=== PATIENT | male | born 1960 | race Caucasian/White ===

== ENCOUNTER 2017-10-18 01:56 | Inpatient (IN) | payer MEDICARE, SELFPAY ==
[~2017-10-18] VITALS: Ht 175.3 cm; Wt 116.7 kg
[~2017-10-18 01:56] MED LIST: ALBU90OI61 INH; LOSHYD; Lisinopril2.5 MG
[2017-10-18] MEDS ORDERED: ASPI81CH PO (02:15)
[2017-10-18] MEDS ORDERED: Prilosec Otc20 MG PO (02:16)
[2017-10-18 02:39] LABS: PCO2 Arterial 35.1 mmHg (35-45); PO2 Arterial 78.1 mmHg (80-100); pH Blood Arterial 7.47 (7.35-7.45)
[2017-10-18 02:53] LABS: BASOPHILS ABSOLUTE AUTO 0.04 K/mm3 (0.00-0.23); BASOPHILS PERCENT AUTO 0 % (0-2); EOSINOPHILS ABSOLUTE AUTO 0.12 K/mm3 (0.00-0.68); EOSINOPHILS PERCENT AUTO 1 % (0-6); Hematocrit 38.9 % (37.0-53.0); Hemoglobin 13.6 g/dL (13.5-17.5); IMMATURE GRAN ABSOLUTE AUTO 0.06 K/mm3 (0.00-0.10); IMMATURE GRAN PERCENT AUTO 0 % (0-1); LYMPHOCYTES ABSOLUTE AUTO 1.08 K/mm3 (0.84-5.20); LYMPHOCYTES PERCENT AUTO 7 % (21-46); MONOCYTES ABSOLUTE AUTO 0.86 K/mm3 (0.16-1.47); MONOCYTES PERCENT AUTO 5 % (4-13); Mean Corpuscular HGB 30.2 pg (26.0-34.0); Mean Corpuscular Volume 86 fL (80-100); NEUTROPHILS ABSOLUTE AUTO 14.14 K/mm3 (1.96-9.15); NEUTROPHILS PERCENT AUTO 87 % (41-73); Platelet Count 275 K/mm3 (150-400); RDW Coefficient Variation 11.8 % (11.7-14.2); RDW Standard Deviation 37.4 fL (35.1-46.3)
[2017-10-18 03:17] LABS: Alanine Aminotransfer (ALT/SGP 25 U/L (12-78); Albumin, Blood 3.7 g/dL (3.4-5.0); Albumin/Globulin Ratio 0.9 (0.8-1.8); Alk Phos 51 U/L (50-136); Anion Gap 9 mmol/L (6-16); Aspartate Aminotrans (AST/SGOT 13 U/L (12-37); Bilirubin, Total 0.4 mg/dL (0.1-1.0); Blood Urea Nitrogen 17 mg/dL (8-24); Bun/Creatinine Ratio 15.3 (12.0-20.0); CO2, Blood 26 mmol/L (21-32); Calcium, Blood 8.9 mg/dL (8.5-10.1); Chloride, Blood 99 mmol/L (98-108); Creatinine, Blood 1.11 mg/dL (0.60-1.20); Globulin, Blood 3.9 g/dL (2.2-4.0); Glomerular Filtration Rate >60 (60-); Glucose, Blood 159 mg/dL (70-99); Magnesium, Blood 1.7 mg/dL (1.6-2.4); Sodium, Blood 134 mmol/L (136-145); Total Protein, Blood 7.6 g/dL (6.4-8.2); Troponin I <0.015 ng/mL (0.000-0.040)
[2017-10-18 05:54] LABS: Influenza A Negative (NEGATIVE); Influenza B Negative (NEGATIVE)
[2017-10-18] MEDS ORDERED: AMLO10 PO (06:50)
[2017-10-18] MEDS ORDERED: LISI20 PO (06:50)
[2017-10-18] MEDS ORDERED: Hair, Skin & N1 EACH PO (06:51)
[2017-10-19 05:07] LABS: Hematocrit 37.1 % (37.0-53.0); Hemoglobin 12.5 g/dL (13.5-17.5); Mean Corpuscular HGB 30.3 pg (26.0-34.0); Mean Corpuscular HGB Conc 33.7 g/dL (31.5-36.5); Mean Platelet Volume 8.9 fL (9.1-12.4); Platelet Count 256 K/mm3 (150-400); RDW Coefficient Variation 12.4 % (11.7-14.2); Red Blood Cell Count 4.13 M/mm3 (4.30-5.90); White Blood Cell Count 19.54 K/mm3 (4.00-11.30)
[2017-10-19 05:08] LABS: Mean Corpuscular Volume 90 fL (80-100)
[2017-10-19 05:30] LABS: Anion Gap 8 mmol/L (6-16); Blood Urea Nitrogen 16 mg/dL (8-24); Bun/Creatinine Ratio 17.8 (12.0-20.0); CO2, Blood 23 mmol/L (21-32); Calcium, Blood 8.7 mg/dL (8.5-10.1); Chloride, Blood 105 mmol/L (98-108); Glomerular Filtration Rate >60 (60-); Glucose, Blood 158 mg/dL (70-99); Potassium, Blood 4.3 mmol/L (3.5-5.5); Sodium, Blood 136 mmol/L (136-145)
[2017-10-20 05:43] LABS: Hematocrit 36.2 % (37.0-53.0); Hemoglobin 12.1 g/dL (13.5-17.5); Mean Corpuscular HGB Conc 33.4 g/dL (31.5-36.5); Mean Corpuscular Volume 90 fL (80-100); Mean Platelet Volume 9.7 fL (9.1-12.4); Platelet Count 283 K/mm3 (150-400); RDW Coefficient Variation 12.5 % (11.7-14.2); RDW Standard Deviation 41.3 fL (35.1-46.3); Red Blood Cell Count 4.04 M/mm3 (4.30-5.90); White Blood Cell Count 19.35 K/mm3 (4.00-11.30)
[2017-10-20 06:09] LABS: Anion Gap 8 mmol/L (6-16); Blood Urea Nitrogen 23 mg/dL (8-24); Bun/Creatinine Ratio 24.6 (12.0-20.0); CO2, Blood 25 mmol/L (21-32); Calcium, Blood 8.9 mg/dL (8.5-10.1); Chloride, Blood 103 mmol/L (98-108); Creatinine, Blood 0.94 mg/dL (0.60-1.20); Glomerular Filtration Rate >60 (60-); Glucose, Blood 182 mg/dL (70-99); Sodium, Blood 136 mmol/L (136-145)
[2017-10-21 05:30] LABS: Hematocrit 35.8 % (37.0-53.0); Hemoglobin 12.1 g/dL (13.5-17.5); Mean Corpuscular HGB 30.3 pg (26.0-34.0); Mean Corpuscular HGB Conc 33.8 g/dL (31.5-36.5); Mean Corpuscular Volume 90 fL (80-100); Mean Platelet Volume 9.5 fL (9.1-12.4); Platelet Count 304 K/mm3 (150-400); RDW Coefficient Variation 12.5 % (11.7-14.2); White Blood Cell Count 19.58 K/mm3 (4.00-11.30)
[2017-10-21] MEDS ORDERED: AZIT500 PO (12:01)
[2017-10-21] MEDS ORDERED: CEFU500T30 PO (12:01)
[2017-10-21] MEDS ORDERED: HYDCHL25 PO (12:02)
[2017-10-21] MEDS ORDERED: Prednisone20 MG PO (12:03)
== END 2017-10-21 12:28 | disposition home or self-care (01) | DRG 871 ==
LOC: ER 01:56 → MEDS 05:25 → ENPENDDIS 10-21 10:43 → MEDS 10-21 12:28
PROVIDERS: Emergency Medicine; Internal Medicine
DX: A41.9 Sepsis, unspecified organism (principal); J18.9 Pneumonia, unspecified organism; J96.01 Acute respiratory failure with hypoxia; J45.901 Unspecified asthma with (acute) exacerbation; E87.70 Fluid overload, unspecified; R65.20 Severe sepsis without septic shock; I10 Essential (primary) hypertension; E66.9 Obesity, unspecified; Z68.36 Body mass index [BMI] 36.0-36.9, adult; Z88.8 Allergy status to other drugs, medicaments and biological substances; Z79.82 Long term (current) use of aspirin; Z79.899 Other long term (current) drug therapy
CPT/HCPCS: 36415; 36600; 71046; 80048; 80053; 82803; 83605; 83735; 83880; 84484; 85025; 85027; 87040; 87070; 87081; 87205; 87804; 93005; 93010; 94640; 94644; 94667; 94760; 96365; 96366; 96367; 96375; 99285; J0456; J0696; J1650; J1885; J1940; J2930; J3475; J7030; J7050

== ENCOUNTER 2022-07-21 19:54 | Emergency (ER) | payer MEDICARE ==
[~2022-07-21] VITALS: Ht 172.7 cm; Wt 108.9 kg
[~2022-07-21 19:54] MED LIST changes: +AMLO10 PO; +ASPI81CH PO; +AZIT500 PO; +CEFU500T30 PO; +HYDCHL25 PO; +Hair, Skin & N1 EACH PO; +LISI20 PO; +Prednisone20 MG PO; +Prilosec Otc20 MG PO
[2022-07-21 20:57] LABS: BASOPHILS ABSOLUTE AUTO 0.01 K/mm3 (0.00-0.23); BASOPHILS PERCENT AUTO 0 % (0-2); EOSINOPHILS PERCENT AUTO 0 % (0-6); Hematocrit 41.2 % (37.0-53.0); IMMATURE GRAN ABSOLUTE AUTO 0.03 K/mm3 (0.00-0.10); IMMATURE GRAN PERCENT AUTO 0 % (0-1); LYMPHOCYTES ABSOLUTE AUTO 0.86 K/mm3 (0.84-5.20); LYMPHOCYTES PERCENT AUTO 9 % (21-46); MONOCYTES ABSOLUTE AUTO 0.53 K/mm3 (0.16-1.47); MONOCYTES PERCENT AUTO 6 % (4-13); Mean Corpuscular HGB 30.4 pg (26.0-34.0); Mean Corpuscular HGB Conc 36.4 g/dL (31.5-36.5); Mean Corpuscular Volume 83 fL (80-100); Mean Platelet Volume 9.1 fL (9.1-12.4); NEUTROPHILS ABSOLUTE AUTO 8.04 K/mm3 (1.96-9.15); NEUTROPHILS PERCENT AUTO 85 % (41-73); Platelet Count 248 K/mm3 (150-400); RDW Coefficient Variation 11.8 % (11.7-14.2); RDW Standard Deviation 35.8 fL (35.1-46.3); Red Blood Cell Count 4.94 M/mm3 (4.30-5.90); White Blood Cell Count 9.47 K/mm3 (4.00-11.30)
[2022-07-21 21:16] LABS: Albumin, Blood 3.8 g/dL (3.4-5.0); Bilirubin, Total 0.4 mg/dL (0.1-1.0); Bun/Creatinine Ratio 18.1 (12.0-20.0); Calcium, Blood 8.8 mg/dL (8.5-10.1); Creatinine, Blood 1.05 mg/dL (0.60-1.20); Globulin, Blood 3.9 g/dL (2.2-4.0); Potassium, Blood 3.4 mmol/L (3.5-5.5); Total Protein, Blood 7.7 g/dL (6.4-8.2)
== END 2022-07-22 00:07 | disposition home or self-care (01) ==
LOC: ER 19:54
PROVIDERS: Physician Assistant
DX: J10.1 Influenza due to other identified influenza virus with other respiratory manifestations (principal); J45.901 Unspecified asthma with (acute) exacerbation; I10 Essential (primary) hypertension; Z88.8 Allergy status to other drugs, medicaments and biological substances; Z79.82 Long term (current) use of aspirin; Z79.899 Other long term (current) drug therapy; Z79.52 Long term (current) use of systemic steroids
CPT/HCPCS: 71046; 80053; 84484; 85025; 94644; 94664; A9270

== ENCOUNTER 2022-11-05 13:57 | Emergency (ER) | payer OTHER, MEDICARE ==
[~2022-11-05] VITALS: Ht 172.7 cm; Wt 86.2 kg
== END 2022-11-05 17:04 | disposition home or self-care (01) ==
LOC: ER 13:57
DX: S09.90XA Unspecified injury of head, initial encounter (principal); S16.1XXA Strain of muscle, fascia and tendon at neck level, initial encounter; Z79.899 Other long term (current) drug therapy; I10 Essential (primary) hypertension; V89.2XXA Person injured in unspecified motor-vehicle accident, traffic, initial encounter; Z79.52 Long term (current) use of systemic steroids
CPT/HCPCS: 70450; 72125; A9270

== ENCOUNTER 2023-06-26 08:26 | Inpatient (IN) | payer MEDICARE, OTHER ==
[~2023-06-26] VITALS: Ht 175.3 cm; Wt 111.1 kg
[2023-06-26 09:45] LABS: BASOPHILS ABSOLUTE AUTO 0.05 K/mm3 (0.00-0.23); BASOPHILS PERCENT AUTO 0 % (0-2); EOSINOPHILS ABSOLUTE AUTO 0.01 K/mm3 (0.00-0.68); EOSINOPHILS PERCENT AUTO 0 % (0-6); Hematocrit 39.5 % (37.0-53.0); Hemoglobin 14.2 g/dL (13.5-17.5); IMMATURE GRAN ABSOLUTE AUTO 0.18 K/mm3 (0.00-0.10); IMMATURE GRAN PERCENT AUTO 1 % (0-1); LYMPHOCYTES ABSOLUTE AUTO 0.47 K/mm3 (0.84-5.20); LYMPHOCYTES PERCENT AUTO 2 % (21-46); MONOCYTES ABSOLUTE AUTO 0.68 K/mm3 (0.16-1.47); MONOCYTES PERCENT AUTO 3 % (4-13); Mean Corpuscular HGB 32.2 pg (26.0-34.0); Mean Corpuscular HGB Conc 35.9 g/dL (31.5-36.5); Mean Corpuscular Volume 90 fL (80-100); Mean Platelet Volume 8.9 fL (9.1-12.4); NEUTROPHILS ABSOLUTE AUTO 18.84 K/mm3 (1.96-9.15); NEUTROPHILS PERCENT AUTO 93 % (41-73); Platelet Count 216 K/mm3 (150-400); RDW Coefficient Variation 12.6 % (11.7-14.2); RDW Standard Deviation 41.4 fL (35.1-46.3); Red Blood Cell Count 4.41 M/mm3 (4.30-5.90); White Blood Cell Count 20.23 K/mm3 (4.00-11.30)
[2023-06-26 10:06] LABS: Albumin, Blood 3.5 g/dL (3.4-5.0); Albumin/Globulin Ratio 0.9 (0.8-1.8); Bilirubin, Total 0.6 mg/dL (0.1-1.0); Bun/Creatinine Ratio 21.2 (12.0-20.0); Calcium, Blood 9.2 mg/dL (8.5-10.1); Creatinine, Blood 1.04 mg/dL (0.60-1.20); Globulin, Blood 3.8 g/dL (2.2-4.0); Magnesium, Blood 1.8 mg/dL (1.6-2.4); Potassium, Blood 3.9 mmol/L (3.5-5.5); Total Protein, Blood 7.3 g/dL (6.4-8.2)
[2023-06-26 10:38] LABS: BASOPHILS PERCENT MAN 0 % (0-2); EOSINOPHILS PERCENT MAN 0 % (0-6); LYMPHOCYTES PERCENT MAN 2 % (21-46); MONOCYTES PERCENT MAN 4 % (4-13); NEUTROPHILS ABSOLUTE MAN 19.01 K/mm3 (1.96-9.15); SEG NEUTROPHILS PERCENT MAN 94 % (41-73); TOTAL CELLS COUNTED 100
[2023-06-26 10:58] LABS: Source, Urine Clean Catch
[2023-06-26 11:02] LABS: Appearance, Urine Clear (Clear); Bilirubin, Urine Neg (Neg); Blood, Urine 1+ (Neg); Color, Urine Yellow (P-Yellow); Glucose Qualitative, Urine 2+ (Neg); Ketones, Urine 1+ (Neg); Leukocyte Esterase, Urine Neg (Neg); Nitrite, Urine Neg (Neg); Protein, Urine 2+ (Neg); Urobilinogen, Urine NORM (Normal)
[2023-06-26 11:10] LABS: Bacteria Rare /hpf; Squamous Epithelial Cells Rare /hpf (Few)
[2023-06-26 11:11] LABS: Mucus Light (0-Heavy)
[2023-06-26 20:09] VITALS: BP 113/75
[2023-06-27 04:10] VITALS: BP 111/64
--- NOTE | 2023-06-27 04:41 | NUR ---
SHIFT SUMMARY/ADMISSION NOTE PATIENT ARRIVED TO UNIT FROM ED AT 1940. ORIENTED TO UNIT, ROOM AND CALL LIGHT FUNCTIONS. SPOUSE AT BEDSIDE, SUPPORTIVE. PATIENT IS A/Ox4, STATES HE WAS AT SON's SCHOOL, SUDDENLY FELT NAUSEATED, OPENED CAR DOOR, THREW UP THEN PASSED OUT, FELL OUT OF CAR AND HIT HEAD ON PAVEMENT. SUSTAINED LACERATION TO RIGHT FOREHEAD/EYEBROW, PERIORBITAL BRUISING AND SWELLING, SUTURED IN ED, REYES. IS CONTINENT OF B&B, RECENTLY HAS ACCIDENTS AT TIMES DUE TO URGENCY/PAINFUL URINATION, HX OF PROSTATECTOMY LAST JULY. PATIENT HAS HAD 2 INCONTINENT VOIDS, DECLINED CONDOM CATHETER, AGREED TO WEAR PULL-UPS. MEDICATED PER EMAR FOR FACIAL PAIN AND CHRONIC BACK PAIN, EXACERBATED DUE TO RECENT FALL. TEMP HAS BEEN ELEVATED, MEDICATED WITH PRN TYLENOL WITH GOOD RESULTS. NO ACUTE CHANGES NOTED OVERNIGHT. BED LOCKED AND IN LOWEST POSITION, CALL LIGHT WITHIN REACH.
[2023-06-27 05:23] LABS: BASOPHILS ABSOLUTE AUTO 0.02 K/mm3 (0.00-0.23); BASOPHILS PERCENT AUTO 0 % (0-2); EOSINOPHILS PERCENT AUTO 0 % (0-6); Hematocrit 36.9 % (37.0-53.0); Hemoglobin 12.9 g/dL (13.5-17.5); IMMATURE GRAN ABSOLUTE AUTO 0.13 K/mm3 (0.00-0.10); IMMATURE GRAN PERCENT AUTO 1 % (0-1); LYMPHOCYTES ABSOLUTE AUTO 0.55 K/mm3 (0.84-5.20); LYMPHOCYTES PERCENT AUTO 4 % (21-46); MONOCYTES ABSOLUTE AUTO 0.66 K/mm3 (0.16-1.47); MONOCYTES PERCENT AUTO 5 % (4-13); Mean Corpuscular HGB 32.1 pg (26.0-34.0); Mean Corpuscular Volume 92 fL (80-100); Mean Platelet Volume 9.2 fL (9.1-12.4); NEUTROPHILS ABSOLUTE AUTO 12.65 K/mm3 (1.96-9.15); NEUTROPHILS PERCENT AUTO 90 % (41-73); Platelet Count 180 K/mm3 (150-400); RDW Coefficient Variation 12.7 % (11.7-14.2); Red Blood Cell Count 4.02 M/mm3 (4.30-5.90); White Blood Cell Count 14.01 K/mm3 (4.00-11.30)
[2023-06-27 06:12] LABS: Bun/Creatinine Ratio 18.1 (12.0-20.0); Calcium, Blood 8.3 mg/dL (8.5-10.1); Creatinine, Blood 1.38 mg/dL (0.60-1.20); Potassium, Blood 3.7 mmol/L (3.5-5.5)
[2023-06-27 07:28] VITALS: BP 144/85
[2023-06-27 08:24] LABS: International Normalized Ratio 1.16; Prothrombin Time Results 12.1 Sec (9.7-11.5)
--- NOTE | 2023-06-27 13:57 | NUR ---
CT IMAGING HERE TO TAKE PT TO XRAY FOR PROCEDURE VIA W/C. CONTINUE POC.
[2023-06-27 15:34] VITALS: BP 148/75
--- NOTE | 2023-06-27 17:46 | NUR ---
note PT ALERT AND ORIENTED. UP AD MIAH AT BEDSIDE. VOIDING PER URINAL. VSS. PT EXPRESSED LACK OF PAIN WITH VOIDING AFTER ABCESS DRAINING. IVF INFUSING. URINE STILL VERY DARK, NO ODOR NOTED. AT BEDSIDE. MEDICATED WITH TYLENOL FOR ELEVATED TEMP. PT STATES HE IS STARTING TO FEEL BETTER. RIGHT EYE SWELLING STABLE. YELLOWISH DISCHARGE HAS DECREASED. PT USES A WET, WARM CLOTH TO GENTLE WASH HIS EYE. HE STATES HE HAS A HEADACHE. NO LIGHT SENSATIVITY. CRICKET. ATE JELO AND DRANK TEA WHEN HE RETURNED FROM CT. NO NAUSEA. CONTINUE POC.
[2023-06-27 19:32] VITALS: BP 107/64
--- NOTE | 2023-06-28 03:59 | NUR ---
SHIFT SUMMARY PT A&Ox4, CALM AND COOPERATIVE WITH CARE PROVIDED. PT UP AD MIAH AT BEDSIDE USING URINAL. NS INFUISING AT 200 ML/HR. PT COMPLAINT OF A HEADACHE--MEDICATED PER EMAR. PT GIVEN CLEAN WET WASHCLOTH TO WIPE AWAY EYE DRAINAGE WHICH IS VERY MINIMAL. AT BEDSIDE AT START OF SHIFT. BED KEPT IN LOWEST POSITION WITH CALL LIGHT WITHIN REACH. WILL CONTINUE TO MONITOR UNTIL END OF SHIFT.
[2023-06-28 05:06] LABS: BASOPHILS ABSOLUTE AUTO 0.02 K/mm3 (0.00-0.23); BASOPHILS PERCENT AUTO 0 % (0-2); EOSINOPHILS ABSOLUTE AUTO 0.01 K/mm3 (0.00-0.68); EOSINOPHILS PERCENT AUTO 0 % (0-6); Hematocrit 33.2 % (37.0-53.0); Hemoglobin 11.4 g/dL (13.5-17.5); IMMATURE GRAN ABSOLUTE AUTO 0.07 K/mm3 (0.00-0.10); IMMATURE GRAN PERCENT AUTO 1 % (0-1); LYMPHOCYTES ABSOLUTE AUTO 0.53 K/mm3 (0.84-5.20); LYMPHOCYTES PERCENT AUTO 5 % (21-46); MONOCYTES ABSOLUTE AUTO 0.86 K/mm3 (0.16-1.47); MONOCYTES PERCENT AUTO 8 % (4-13); Mean Corpuscular HGB 31.9 pg (26.0-34.0); Mean Corpuscular HGB Conc 34.3 g/dL (31.5-36.5); Mean Corpuscular Volume 93 fL (80-100); NEUTROPHILS ABSOLUTE AUTO 8.77 K/mm3 (1.96-9.15); NEUTROPHILS PERCENT AUTO 85 % (41-73); Platelet Count 161 K/mm3 (150-400); RDW Standard Deviation 44.7 fL (35.1-46.3); Red Blood Cell Count 3.57 M/mm3 (4.30-5.90); White Blood Cell Count 10.26 K/mm3 (4.00-11.30)
[2023-06-28 05:44] LABS: Creatinine, Blood 1.2 mg/dL (0.60-1.20); Magnesium, Blood 2.2 mg/dL (1.6-2.4); Potassium, Blood 3.7 mmol/L (3.5-5.5)
[2023-06-28 06:06] VITALS: BP 109/75
[2023-06-28 07:27] VITALS: BP 128/84
[2023-06-28 16:31] VITALS: BP 147/79
[2023-06-28 19:39] VITALS: BP 143/87
--- NOTE | 2023-06-28 20:07 | NUR ---
SHIFT SUMMARY PATIENT WITH HEADACHE THROUGHOUT SHIFT PAIN 2-4/10 MEDICATED PER EMAR WITH SOME RELIEF. NO OTHER COMPLAINTS BY PATIENT. BED IN LOW POSITION, CALL LIGHT IN REACH. PATIENT CALLS APPROPRIATELY.
[2023-06-29 03:54] VITALS: BP 132/85
--- NOTE | 2023-06-29 05:00 | NUR ---
END OF SHIFT SUMMARY PT A&O x4, VSS, AFEBRILE. PT PLEASANT AND COOPERATIVE WITH CARE PROVIDED. PT DIDN'T SLEEP WELL OVERNIGHT. PT UP FREQUENTLY TO BATHROOM TO VOID. PT REQUESTED PRN APAP AND TORADOL FOR PAIN MANAGEMENT. PT C/O ACHY PAIN TO L SIKH RADIATING TO L EAR. PT ABLE TO MAKE NEEDS KNOWN. CALL LIGHT WITHIN REACH, WCTM.
[2023-06-29 05:04] LABS: BASOPHILS ABSOLUTE AUTO 0.02 K/mm3 (0.00-0.23); BASOPHILS PERCENT AUTO 0 % (0-2); EOSINOPHILS ABSOLUTE AUTO 0.01 K/mm3 (0.00-0.68); EOSINOPHILS PERCENT AUTO 0 % (0-6); Hematocrit 31.6 % (37.0-53.0); Hemoglobin 11.1 g/dL (13.5-17.5); IMMATURE GRAN ABSOLUTE AUTO 0.08 K/mm3 (0.00-0.10); IMMATURE GRAN PERCENT AUTO 1 % (0-1); LYMPHOCYTES ABSOLUTE AUTO 0.45 K/mm3 (0.84-5.20); LYMPHOCYTES PERCENT AUTO 5 % (21-46); MONOCYTES ABSOLUTE AUTO 0.76 K/mm3 (0.16-1.47); MONOCYTES PERCENT AUTO 9 % (4-13); Mean Corpuscular HGB 31.8 pg (26.0-34.0); Mean Corpuscular HGB Conc 35.1 g/dL (31.5-36.5); Mean Corpuscular Volume 91 fL (80-100); Mean Platelet Volume 9.4 fL (9.1-12.4); NEUTROPHILS ABSOLUTE AUTO 7.35 K/mm3 (1.96-9.15); NEUTROPHILS PERCENT AUTO 85 % (41-73); Platelet Count 161 K/mm3 (150-400); RDW Coefficient Variation 12.8 % (11.7-14.2); RDW Standard Deviation 42.5 fL (35.1-46.3); Red Blood Cell Count 3.49 M/mm3 (4.30-5.90); White Blood Cell Count 8.67 K/mm3 (4.00-11.30)
[2023-06-29 05:48] LABS: Bun/Creatinine Ratio 16.8 (12.0-20.0); Calcium, Blood 8.2 mg/dL (8.5-10.1); Creatinine, Blood 1.19 mg/dL (0.60-1.20); Potassium, Blood 3.7 mmol/L (3.5-5.5)
[2023-06-29 07:12] VITALS: BP 152/89
--- NOTE | 2023-06-29 10:31 | NUR ---
MD CALL MR CANSECO REQUESTING THAT IVF ARE STOPPED HE FEELS THAT HE IS GETTING SWOLLEN FROM THE IVF. HE SAID HE IS DRINKING WATER WELL. DR CADE CALLED AND TELEPHONE ORDER FOR D/C IVF ENTERED INTO [employer].
[2023-06-29 15:08] VITALS: BP 130/91
--- NOTE | 2023-06-29 16:58 | NUR ---
SHIFT SUMMARY MR CANSECO IS ORIENTATED X4. UP INDEPENDENTLY IN THE ROOM WITH STEADY GAIT. NO LIGHTHEADEDNESS. DOES HAVE HEADACHE, MOSTLY AROUND LEFT SIDE OF HEAD AND LEFT EAR. NOTED SOB ON MINIMAL EXERTION. HE SAID HE HAS A HISTORY OF ASTHMA AND GETS FREQUENT SOB EPISODES. HE SAID HE TAKES RESCUE INHALER WHEN IT GETS WORSE THAN THIS AT HOME. SUPPORTIVE FAMILY VISITED TODAY. BED LOW, CALL LIGHT IN REACH.
[2023-06-29 19:46] VITALS: BP 139/92
--- NOTE | 2023-06-30 03:28 | NUR ---
END OF SHIFT SUMMARY PT A&O x4, VSS, AFEBRILE. PT PLEASANT AND COOPERATIVE WITH CARE PROVIDED. PT UP AD MIAH IN ROOM, INDEPENDENT WITH ADLs. NO C/O LIGHTHEADEDNESS WITH AMBULATING. PT ABLE TO MAKE NEEDS KNOWN. PT CONTINUES TO EXPERIENCE PAIN TO L FRONTAL LOBE, DESCRIBING PAIN ACHY. PAIN MANAGED WITH PRN APAP WITH GOOD RESULTS. PT RECEIVED A ONE TIME DOSE OF IV LASIX 40MG LAST NIGHT. PT EDUCATION PROVIDED ON SIDE EFFECTS OF FUROSEMIDE. ALL QUESTIONS/CONCERNS WERE ANSWERED/ADDRESSED. CALL LIGHT WITHIN REACH, WCTM.
[2023-06-30 05:22] VITALS: BP 132/88
[2023-06-30 05:50] LABS: Albumin, Blood 2.5 g/dL (3.4-5.0); Anion Gap 6 mmol/L (6-16); Blood Urea Nitrogen 16 mg/dL (8-24); Bun/Creatinine Ratio 13.7 (12.0-20.0); CO2, Blood 28 mmol/L (21-32); Calcium, Blood 8.5 mg/dL (8.5-10.1); Chloride, Blood 101 mmol/L (98-108); Creatinine, Blood 1.17 mg/dL (0.60-1.20); Glomerular Filtration Rate 70 (60-); Glucose, Blood 131 mg/dL (70-99); Phosphorus, Blood 3.2 mg/dL (2.5-4.9); Potassium, Blood 3.7 mmol/L (3.5-5.5); Sodium, Blood 135 mmol/L (136-145)
[2023-06-30 07:29] VITALS: BP 145/97
[2023-06-30 15:12] VITALS: BP 133/91
--- NOTE | 2023-06-30 17:24 | NUR ---
SHIFT SUMMARY MR CANSECO HAS BEEN UP INDEPENDENTLY AROUND ROOM. STEADY GAIT, DENIES DIZZYNESS OR NAUSEA. HE DOES HAVE SOB AFTER WALKING IN TO THE BATHROOM. HX ASTHMA AND HE SAID THIS IS MORE THAN HIS USUAL SOB BUT NOT ENOUGH THAT HE WOULD BE REACHING FOR HIS INHALER. ABDOMINAL ROUNDNESS AND FIRMNESS THAT MR CANSECO SAID WAS NORMAL FOR HIM; HIS SAID HIS ABDOMEN AND CALVES ARE MORE SWOLLEN THAN HIS NORMAL. IV LASIX GIVEN. HE HAS C/O HEADACHE MOSTLY ON HIS LEFT SIDE AND NEAR HIS LEFT EAR BETWEEN 1-4/10 AND CONSISTANT, SOMETIMES SHOOTING PAIN AROUND HIS LEFT EAR. HIS RIGHT EYE AREA LOOKS LESS SWOLLEN TODAY. HE DENIES VISUAL CHANGES OR CONCERNS. BED LOW, CALL LIGHT IN REACH.
[2023-06-30 19:51] VITALS: BP 150/96
[2023-07-01 03:10] VITALS: BP 134/99
--- NOTE | 2023-07-01 04:40 | NUR ---
END OF SHIFT SUMMARY PT A&O x4, VSS, ON RA, AFEBRILE. PT PLEASANT AND COOPERATIVE WITH CARE PROVIDED. PT SLEPT ON AND OFF THROUGHOUT THE SHIFT. PT UP AD MIAH, INDEPENDENT IN ROOM. PAIN MONITORED/CONTROLLED APPROPRIATELY WITH PRN MEDICATIONS. PT DENIED ANY PAIN/DISCOMFORT WHEN ASKED. PT STATED THAT HE WAS COMFORTABLE. FREQUENT SAFETY CHECKS COMPLETED. ANTIBIOTIC EYE DROPS TOBRAMYCIN SCHEDULED Q4 HRS. PT ABLE TO MAKE NEEDS KNOWN, CALL LIGHT WITHIN REACH, WCTM.
[2023-07-01 07:15] VITALS: BP 136/97
[2023-07-01 08:44] LABS: Bun/Creatinine Ratio 14.8 (12.0-20.0); Creatinine, Blood 0.94 mg/dL (0.60-1.20); Potassium, Blood 3.8 mmol/L (3.5-5.5)
--- NOTE | 2023-07-01 09:13 | NUR ---
pt sitting up on the side of the bed, awake, a/ox4, pleasant and cooperative with care, follows commands well, deneis pain, states he's doing ok, lungs are clear t/o, get sob with activity, no cough noted, hrr, +1 edema noted to b/l le, ppp+2, cap refill <3sec, vs stable, afebrile, iv site is clear and patent, btx4, abd flat soft nontneder, voids without diff, skin c/w/d, except around right eye has abrasion, bruising, maew, daquan, call light in reach.
[2023-07-01] MEDS ORDERED: VISBIOME 112.51 EACH PO (10:55)
[2023-07-01] MEDS ORDERED: TOBRADEX ST EYE5 M1 BOTHEYES (10:55)
[2023-07-01] MEDS ORDERED: AMOCLA875 PO (10:55)
--- NOTE | 2023-07-01 12:18 | NUR ---
pt is being discharged to home, went over instructions with him and spouce, infusing noon dose of iv abx as ordered, pt had a shower, will leave when abx complete. call light in reach.
--- NOTE | 2023-07-01 13:07 | NUR ---
Pt iv removed intact, finished abx, left via wheelchair with center receptionist and family in attendence.
== END 2023-07-01 13:07 | disposition home or self-care (01) | DRG 871 ==
LOC: ER 08:26 → MEDS 15:11 → ENPENDDIS 07-01 11:43 → MEDS 07-01 13:07
PROVIDERS: Internal Medicine; Physician Assistant; ADMIT Internal Medicine
PROC: 0HQ1XZZ Repair Face Skin, External Approach (ICD-10-PCS; principal; 2023-06-26)
PROC: 3E03329 Introduction of Other Anti-infective into Peripheral Vein, Percutaneous Approach (ICD-10-PCS; 2023-06-26)
DX: A40.1 Sepsis due to streptococcus, group B (principal); K65.1 Peritoneal abscess; N17.9 Acute kidney failure, unspecified; E87.1 Hypo-osmolality and hyponatremia; J45.909 Unspecified asthma, uncomplicated; I10 Essential (primary) hypertension; S01.81XA Laceration without foreign body of other part of head, initial encounter; W18.30XA Fall on same level, unspecified, initial encounter; K21.9 Gastro-esophageal reflux disease without esophagitis; F10.90 Alcohol use, unspecified, uncomplicated; M19.90 Unspecified osteoarthritis, unspecified site; M54.9 Dorsalgia, unspecified; F11.21 Opioid dependence, in remission; H10.9 Unspecified conjunctivitis; G89.29 Other chronic pain; Z85.46 Personal history of malignant neoplasm of prostate; Z90.79 Acquired absence of other genital organ(s); Z92.3 Personal history of irradiation; Z79.811 Long term (current) use of aromatase inhibitors; Z79.899 Other long term (current) drug therapy; Z88.8 Allergy status to other drugs, medicaments and biological substances; Z92.21 Personal history of antineoplastic chemotherapy; Z90.49 Acquired absence of other specified parts of digestive tract; Z98.890 Other specified postprocedural states; Z87.11 Personal history of peptic ulcer disease; Z98.1 Arthrodesis status
CPT/HCPCS: 12015; 36415; 70450; 71046; 74177; 75989; 80048; 80053; 80069; 81001; 83605; 83735; 85025; 85610; 85730; 87040; 87070; 87075; 87147; 87205; 90471; 90714; 90715; 93005; 93010; 94640; 94664; 94760; 96365-59; 96366-59; 96375-59; 96376-59; 99285-25; A9270; J0295; J0744; J1650; J1885; J1940; J2405; J2543; J7030; J7050; Q9967

== ENCOUNTER 2023-07-30 19:45 | Observation (INO) | payer MEDICARE ==
[~2023-07-30] VITALS: Ht 172.7 cm; Wt 108.9 kg
[~2023-07-30 19:45] MED LIST changes: +AMOCLA875 PO; +OMEP20ER PO; -Prilosec Otc20 MG PO; +TOBRADEX ST EYE5 M1 BOTHEYES; +VISBIOME 112.51 EACH PO
[2023-07-30 20:09] LABS: BASOPHILS ABSOLUTE AUTO 0.03 K/mm3 (0.00-0.23); BASOPHILS PERCENT AUTO 1 % (0-2); EOSINOPHILS ABSOLUTE AUTO 0.04 K/mm3 (0.00-0.68); EOSINOPHILS PERCENT AUTO 1 % (0-6); Hematocrit 37.9 % (37.0-53.0); Hemoglobin 13.1 g/dL (13.5-17.5); IMMATURE GRAN ABSOLUTE AUTO 0.01 K/mm3 (0.00-0.10); IMMATURE GRAN PERCENT AUTO 0 % (0-1); LYMPHOCYTES ABSOLUTE AUTO 0.86 K/mm3 (0.84-5.20); LYMPHOCYTES PERCENT AUTO 16 % (21-46); MONOCYTES ABSOLUTE AUTO 0.49 K/mm3 (0.16-1.47); MONOCYTES PERCENT AUTO 9 % (4-13); Mean Corpuscular HGB 31.3 pg (26.0-34.0); Mean Corpuscular HGB Conc 34.6 g/dL (31.5-36.5); Mean Corpuscular Volume 91 fL (80-100); Mean Platelet Volume 8.4 fL (9.1-12.4); NEUTROPHILS ABSOLUTE AUTO 4.01 K/mm3 (1.96-9.15); NEUTROPHILS PERCENT AUTO 74 % (41-73); Platelet Count 328 K/mm3 (150-400); RDW Coefficient Variation 11.8 % (11.7-14.2); Red Blood Cell Count 4.19 M/mm3 (4.30-5.90); White Blood Cell Count 5.44 K/mm3 (4.00-11.30)
[2023-07-30 20:31] LABS: Albumin, Blood 3.4 g/dL (3.4-5.0); Albumin/Globulin Ratio 0.8 (0.8-1.8); Bilirubin, Total 0.2 mg/dL (0.1-1.0); Bun/Creatinine Ratio 15.3 (12.0-20.0); Calcium, Blood 9.6 mg/dL (8.5-10.1); Creatinine, Blood 1.11 mg/dL (0.60-1.20); Globulin, Blood 4.3 g/dL (2.2-4.0); Potassium, Blood 3.9 mmol/L (3.5-5.5); Total Protein, Blood 7.7 g/dL (6.4-8.2)
[2023-07-30 23:14] LABS: Source, Urine Clean Catch
[2023-07-30 23:24] LABS: Bilirubin, Urine Neg (Neg); Blood, Urine 1+ (Neg); Glucose Qualitative, Urine Neg (Neg); Ketones, Urine Neg (Neg); Leukocyte Esterase, Urine Neg (Neg); Nitrite, Urine Neg (Neg); Protein, Urine 1+ (Neg); Urobilinogen, Urine NORM (Normal)
[2023-07-30 23:31] LABS: Appearance, Urine Clear (Clear); Color, Urine Yellow (P-Yellow)
[2023-07-30 23:33] LABS: Bacteria Few /hpf; Red Blood Cells, Urine 0-2 /hpf (0-2); Squamous Epithelial Cells Not Seen /hpf (Few)
[2023-07-31 02:30] VITALS: BP 137/72
[2023-07-31 04:00] LABS: BASOPHILS ABSOLUTE AUTO 0.01 K/mm3 (0.00-0.23); BASOPHILS PERCENT AUTO 0 % (0-2); EOSINOPHILS ABSOLUTE AUTO 0.07 K/mm3 (0.00-0.68); EOSINOPHILS PERCENT AUTO 1 % (0-6); Hematocrit 34.3 % (37.0-53.0); Hemoglobin 11.9 g/dL (13.5-17.5); IMMATURE GRAN ABSOLUTE AUTO 0.03 K/mm3 (0.00-0.10); IMMATURE GRAN PERCENT AUTO 1 % (0-1); LYMPHOCYTES ABSOLUTE AUTO 0.87 K/mm3 (0.84-5.20); LYMPHOCYTES PERCENT AUTO 17 % (21-46); MONOCYTES ABSOLUTE AUTO 0.49 K/mm3 (0.16-1.47); MONOCYTES PERCENT AUTO 10 % (4-13); Mean Corpuscular HGB 31.2 pg (26.0-34.0); Mean Corpuscular HGB Conc 34.7 g/dL (31.5-36.5); Mean Corpuscular Volume 90 fL (80-100); Mean Platelet Volume 8.5 fL (9.1-12.4); NEUTROPHILS ABSOLUTE AUTO 3.59 K/mm3 (1.96-9.15); NEUTROPHILS PERCENT AUTO 71 % (41-73); Platelet Count 294 K/mm3 (150-400); RDW Coefficient Variation 11.8 % (11.7-14.2); RDW Standard Deviation 38.4 fL (35.1-46.3); Red Blood Cell Count 3.82 M/mm3 (4.30-5.90); White Blood Cell Count 5.06 K/mm3 (4.00-11.30)
[2023-07-31 04:21] LABS: Albumin, Blood 3.2 g/dL (3.4-5.0); Albumin/Globulin Ratio 0.8 (0.8-1.8); Bilirubin, Total 0.3 mg/dL (0.1-1.0); Bun/Creatinine Ratio 17.5 (12.0-20.0); Calcium, Blood 9.5 mg/dL (8.5-10.1); Creatinine, Blood 0.97 mg/dL (0.60-1.20); Potassium, Blood 3.8 mmol/L (3.5-5.5); Total Protein, Blood 7.2 g/dL (6.4-8.2)
[2023-07-31 07:53] VITALS: BP 117/67
--- NOTE | 2023-07-31 10:24 | NUR ---
I TALKED TO DR. LOAIZA BECAUSE DR. BARNES IS NOT HERE TO DRAIN THE ABCESS TODAY. WE TALKED TO DARRYL IN IR AND HE SAID IN THIS PT'S CASE RADIOLOGY WOULD OFTEN BE CONSULTED FIRST AND IF THEY ARE UNABLE TO THEN [facility] WOULD BE CONSULTED. DR. LOAIZA SAID HE WOULD TALK TO RADIOLOGY. PT NPO AND WE HELD THE LOVENOX PER RADIOLOGY REQUEST. AWAITING FURTHER ORDERS.
[2023-07-31] MEDS ORDERED: CEFP200 PO (12:07)
[2023-07-31] MEDS ORDERED: VISBIOME 112.51 EACH PO (12:07)
--- NOTE | 2023-07-31 12:36 | NUR ---
MORNING/D/C SUMMARY PT IS A&OX4, IND IN THE ROOM, AND WILL BE DISCHARGED TODAY. THE PT WILL FOLLOW UP WITH HIS PCP AND UROOLOGY OUT PT. THE PT WAS TOLD TO GET A FOLLOW UP CT IN FOUR WEEKS. HIS WAS IN THE ROOM AND WAS TRYING TO SET UP APT'S WHILE I WAS GOING OVER DISCHARGE. THE IV WAS D/C'D BY THE SR. PRICING ANALYST AND THE PT TOOK ALL OF HIS BELONGINGS HOME WITH HIM. NO ACUTE EVENTS. HE LEFT AT 1227.
== END 2023-07-31 12:32 | disposition home or self-care (01) ==
LOC: ER 19:45 → PCU 19:46
PROVIDERS: Emergency Medicine; ADMIT Student in an Organized Health Care Education/Training Program
DX: R93.5 Abnormal findings on diagnostic imaging of other abdominal regions, including retroperitoneum (principal); N39.0 Urinary tract infection, site not specified; I10 Essential (primary) hypertension; J45.909 Unspecified asthma, uncomplicated; Z88.8 Allergy status to other drugs, medicaments and biological substances; Z79.899 Other long term (current) drug therapy; Z85.46 Personal history of malignant neoplasm of prostate
CPT/HCPCS: 36416; 80053; 81001; 83605; 83735; 85025; 87086; 96365; 99284; A9270; G0378; J0696